=== PATIENT | male | born 1990 | race Two or more races ===

== ENCOUNTER 2020-10-31 01:47 | Emergency (ER) | payer OTHER, SELFPAY ==
[2020-10-31 02:13] VITALS: BP 134/91; PULSE 75; RESP 18; TEMP 37; O2SAT 98; BMI 27.8
--- NOTE | 2020-10-31 04:50 | ED.DENTAL ---
HPI - Dental/Oral General Chief complaint: Dental/Oral Stated complaint: Dental Pain Time Seen by Provider: 10/31/20 04:50 Source: patient Mode of arrival: ambulatory History of Present Illness HPI Narrative: Dental pain at left lower #17. Molar without fevers or chills for 3 months. Related Data Previous Rx's Medication Instructions Recorded amoxicillin-pot clavulanate 1 tab PO Q12H 5 Days #10 tab 10/31/20 [Augmentin] Allergies Allergy/AdvReac Type Severity Reaction Status Date / Time No Known Allergies Allergy Unverified 04/08/20 19:39 [No Known Allergies*] Review of Systems Review of Systems: Pertinent positives and negatives as stated in HPI 10 point review of systems is otherwise negative. [facility] Past Medical History Source: nursing notes reviewed Social History Social History Advance Directives: No Physical Exam Vital Signs: Vital Signs: Last Vital Signs Temp 98.6 F 10/31/20 02:13 Pulse 75 10/31/20 02:13 Resp 18 10/31/20 02:13 BP 134/91 H 10/31/20 02:13 Pulse Ox 98 10/31/20 02:13 Body Mass Index 27.8 VITAL SIGNS: Reviewed. GENERAL: Well developed, well nourished, in no acute distress. HEAD: Normocephalic/atraumatic EYES: PERRLA, EOMI EARS: Ext canals without abnormality, TMs non-bulging and non-erythematous NOSE: Nares patent bilateral OROPHARYNX: no oral lesions noted, posterior pharynx clear, #17 molar with pain on tapping of the tooth, no trismus NECK: Supple, no adenopathy LUNGS: Normal breath sounds.SpO2<98> CARDIOVASCULAR: Regular rate and rhythm without noted murmurs ABDOMEN: Soft, non-tender, non-distended with bowel sounds. NEUROLOGIC: Alert and oriented x 4. Course Course Course Narrative: 29-year-old male with toothache and provided with initial antibiotics as well as combination analgesics for the pain. On re-evaluation patient reports improvement of his tooth pain and understands that he will be discharged with remaining course of antibiotics. Discharge Plan Discharge Clinical Impression: Toothache, Dental caries Patient Disposition: Home, Self-Care Instructions: Toothache (ED) Additional Instructions: 1. Tylenol 1000 mg, orally, every 6 hours as needed for pain control. Do not exceed 4000 mg within 24 hours. 2. Ibuprofen 400 mg, orally with milk or food, every 6 hours as needed for pain control. 3. Please follow up with the dentist on Sunday morning for definitive treatment of your tooth pain. Do not hesitate to return to the emergency department should you develop any acute worsening of your symptoms. Prescriptions: New amoxicillin-pot clavulanate [Augmentin] 875-125 mg tablet 1 tab PO Q12H 5 Days Qty: 10 RF: 0 Referrals: Physician,Unknown [Primary Care Provider] - 2 days Interventions: ED Discharge Assessment Last Done: 10/31/20 05:13 Discharge Date/Time: 10/31/20 05:19
[2020-10-31] MEDS: Amoxicillin/Potassium Clav 875 MG TABLET PO (05:16)
[2020-10-31] MEDS: Acetaminophen 325 MG TABLET 975 MG PO (05:16)
[2020-10-31] MEDS: Ibuprofen 600 MG TABLET PO (05:17)
== END 2020-10-31 05:19 | disposition home or self-care (01) ==
PROVIDERS: Emergency Provider Student in an Organized Health Care Education/Training Program
DX: K08.89 Other specified disorders of teeth and supporting structures (principal); K02.9 Dental caries, unspecified
CPT/HCPCS: 99283

== ENCOUNTER 2021-08-25 15:26 | Outpatient (REF) | payer OTHER, SELFPAY ==
--- NOTE | 2021-08-26 09:55 | MHC.AU.ANO ---
Adult Audiological Evaluation Date of Visit: 08/25/21 General Ophthalmologist Used: Not Applicable Reason for Appointment: Audiologic evaluation due to question of hearing problems with frequent pain and tinnitus in the left ear. Rolo has a history of head trauma from an accident in childhood. Since the head trauma he experiences migraines and dizziness. Rolo notes he thinks the tinnitus and ear pain increases with migraines/headaches. Has hearing been tested previously?: No Hearing Handicap Inventory: HHIE SCORE: 4 Based on HHIE score, patient has: No perceived hearing handicap Ear History: Recent Ear Pain: Left Ear Ear Infections in Childhood: Both Ears Bothersome Tinnitus/Ringing/Noises in Ears: Left Ear Ear used on the phone: Right ear History of occupational noise exposure?: Yes: Uses hearing protection consistently History: No Medical History: Medical History: Headache, Migraines, Tobacco Use Medication List: None reported Otoscopy: Right Ear: Unremarkable Left Ear: Unremarkable Tympanometry: IT IS NOTED THE PROCEDURE CAUSED INCREASED TINNITUS IN THE LEFT EAR AND MILD HEADACHE Tympanometry performed due to: To assess integrity of the middle ear system Right Ear: Normal Middle Ear System (Type A) Left Ear: Normal Middle Ear System (Type A) Acoustic Reflexes: DID NOT TEST DUE TO SYMPTOMS CAUSED BY TYMPANOMETRY Otoacoustic Emissions Frequency Range Used: 1.6-8 kHz Right Ear Results: Present 3563-9273 Hz with 5000 Hz response being reduced Analysis: Present emissions suggest normal cochlear function Left Ear Results: Present 6429-2594 Hz and 7868-8438 Hz. Absent 3601-9545 Hz. Analysis: Present emissions suggest normal cochlear function Reduced/Absent emissions suggest cochlear dysfunction Hearing Evaluation: Transducer(s) Used: Insert Earphones Bone Conduction Method: Conventional Audiometry Stimuli Used: Pure Tones Right Ear: Description of Hearing: Normal to borderline normal hearing thresholds 250-8000 Hz. Left Ear: Description of Hearing: Borderline normal to mild mixed hearing loss through all frequencies. Speech Recognition Threshold (SRT): Method Used: Monitored Live Voice Stimuli Used: Spondee Words Right Ear: 15 dB HL Left Ear: 25 dB HL Word Discrimination: Method: Recorded Lists Word Lists Used: NU-6 Right Ear: 96% at 55 dB HL Left Ear: 92% at 65 dB HL Interpretation of Results: Based on Rolo's symptoms and asymmetric hearing loss, medical consultation with an Direct Mail Manager/Security Messenger and Neurologist should be considered. Migraines may relate to Rolo's symptoms; however, the asymmetry should also be evaluated by the program and research coordinator. Recommendations: Referral to Ear, Nose, and Throat and Neurologist are recommended. Hearing protection should be used when around loud noise. Audiological re-evaluation in 6 months is advised to monitor. Will send a reminder card. Diagnosis: Primary Diagnosis: H90.72 Mixed HL, Unilateral, Left Ear, W/Unrestricted Contralateral Secondary Diagnosis: H93.12 Tinnitus, Left Ear Services Performed: Comprehensive Audiological Evaluation (CPT 38097) Diagnostic Otoacoustic Emissions (CPT 28662, 26+TC) Tympanometry (CPT 66724) Signature: Provider: Suleman Abraham, CCC-A
== END 2021-08-25 15:27 | disposition home or self-care (01) ==
LOC: HO.SH 15:26
PROVIDERS: Visit Provider Nurse Practitioner Family
DX: H90.72 Mixed conductive and sensorineural hearing loss, unilateral, left ear, with unrestricted hearing on the contralateral side (principal); H93.12 Tinnitus, left ear
CPT/HCPCS: 92557; 92567; 92588

== ENCOUNTER 2023-01-23 06:40 | Emergency (ER) | payer OTHER, SELFPAY ==
[2023-01-23 06:53] VITALS: BP 118/49; PULSE 77; RESP 16; TEMP 36.7; O2SAT 96; BMI 24.4
[2023-01-23 07:53] VITALS: BP 122/76; PULSE 69; RESP 14; TEMP 36.6; O2SAT 96
--- NOTE | 2023-01-23 08:06 | ED_ITS ---
HPI - Male Genitourinary General Chief complaint: Urogenital-Male Stated complaint: Pain Time Seen by Provider: 01/23/23 08:04 Source: patient Mode of arrival: ambulatory Limitations: no limitations History of Present Illness HPI Narrative: 32-year-old male who presents emergency department for evaluation of lesion to his penis, dysuria, penile discharge. Patient states that he last had sex 2 months prior. He states this morning he woke up and noted a painful lesion on the shaft of his penis. He also states that hurts when he urinates. The patient has also had a clear penile discharge. He denied fever, chills, rash, nausea, vomiting. Related Data Previous Rx's Medication Instructions Recorded amoxicillin 875 mg-potassium 1 tab PO Q12H 5 days #10 tabs 10/31/20 clavulanate 125 mg tablet (Augmentin) doxycycline hyclate 100 mg tablet 100 mg PO Q12H 10 days #20 tabs 01/23/23 Allergies Allergy/AdvReac Type Severity Reaction Status Date / Time No Known Allergies Allergy Verified 01/23/23 06:53 [No Known Allergies*] Review of Systems Review of Systems: Yes all other systems are reviewed and are negative COUNTS INCLUDE 234 BEDS AT THE [facility] Past Medical History COUNTS INCLUDE 234 BEDS AT THE [facility] Narrative: Past medical history: UTI. Social history: Patient is sexually active and last had intercourse 2 months prior. He stop smoking 2 weeks prior he smoked for 14 years. He drinks alcohol occasionally. He smokes marijuana.. Social History Social History Advance Directives: No Advance Directives Information Provided: No Physical Exam Vital Signs: Vital Signs: Last Vital Signs Temp 97.9 F 01/23/23 07:53 Pulse 69 01/23/23 07:53 Resp 14 01/23/23 07:53 BP 122/76 01/23/23 07:53 Pulse Ox 96 01/23/23 07:53 O2 Del Method Room Air 01/23/23 07:53 BMI result Body Mass Index 24.4 Vital signs are normal General: Awake, alert, male patient, pleasant, cooperative no distress General: Patient has a uncircumcised penis, foreskin is easily retractable, there is a ulcerative lesion on the left lateral penis which is painful to touch, no other lesions noted. Patient has a clear penile discharge. Testicles are descended, nontender, no scrotal swelling. No inguinal adenopathy or tenderness Medical Decision Making Medical Decision Making MDM Narrative: 32-year-old male who presents emergency department for evaluation of a lesion on his penis, dysuria, penile discharge that started today. Patient is sexually active and last had intercourse 2 months prior. Physical examination did reveal an ulcerative lesion to his left lateral distal penile shaft which I cultured for herpes. Patient also has a clear penile discharge concerning for possible chlamydia. I ordered a gonorrhea and chlamydia urine test, urinalysis, viral culture of the penile lesion, syphilis screen and HIV test. Patient was treated with: Ceftriaxone 500 mg with lidocaine IM for gonorrhea Metronidazole 2 g orally for Trichomonas Doxycycline 100 mg b.i.d. times 10 days for chlamydia Patient was advised to follow-up with his PCP in 1 week to check is HIV, syphilis, gonorrhea and chlamydia test. He was also given axis to the patient portal. He was given printed and verbal instructions discharged home Differential Diagnosis Differential diagnosis includes but is not limited to gonorrhea, chlamydia, Trichomonas, syphilis, HIV disease, herpes Discharge Plan Discharge Clinical Impression: Penile lesion, Urethritis Patient Disposition: Home, Self-Care Instructions: Sexually Transmitted Diseases (ED) Additional Instructions: Your urine was sent for gonorrhea and chlamydia testing Your urine was also sent to test you for urinary tract infection (UTI) The lesion on your penis was swabbed for herpes simplex Your blood was tested for syphilis and HIV disease. You will need to follow-up with your doctor in 1 week to get these test results. You can also check these results on the patient portal. The emergency department is supposed to contact to these tests are positive however DO NOT rely on us contacting you, it is very important that you follow- up with your doctor to get these results. Do not have sex until you are re-evaluated by your doctor in you know your test results. Your treated with ceftriaxone mixed with lidocaine 500 mg intramuscularly-this treats gonorrhea You were treated with metronidazole (Flagyl) 2 g orally-this treats Trichomonas You were given a prescription for doxycycline 100 mg every 12 hours for 10 days- this treats chlamydia Follow-up with your doctor in 7 days. Please return to the emergency department if your symptoms get worse or if you develop any symptoms that are concerning to you. Prescriptions: New doxycycline hyclate 100 mg tablet 100 mg PO Q12H 10 Days Qty: 20 0RF No Action amoxicillin-pot clavulanate [Augmentin] 875-125 mg tablet 1 tab PO Q12H 5 Days Qty: 10 0RF
== END 2023-01-23 09:08 | disposition home or self-care (01) ==
PROVIDERS: Emergency Provider Emergency Medicine Emergency Medical Services
DX: B00.9 Herpesviral infection, unspecified (principal); N34.2 Other urethritis; N48.21 Abscess of corpus cavernosum and penis; L98.9 Disorder of the skin and subcutaneous tissue, unspecified
CPT/HCPCS: 0353U; 36415; 81001; 86780; 87086; 87255; 87389; 96372; 99283; 99284; J0696

== ENCOUNTER 2023-03-10 07:38 | Emergency (ER) | payer OTHER, SELFPAY ==
--- NOTE | ~2023-03-10 | XR_ITS ---
EXAMINATION: XR RIBS, LEFT CLINICAL INFORMATION: Left rib injury COMPARISON: None available. TECHNIQUE: 3 views of the left ribs were obtained. FINDINGS: Lungs are clear. No consolidation, pneumothorax, or pleural effusion. The cardiomediastinal silhouette and pulmonary vasculature are normal. Multiple views of left ribs reveal mild deformity of left lateral 10th rib suggestive of fracture likely subacute to old. No additional fracture seen. Rest of the bony thorax is unremarkable.. XR/XR ribs LT min 3V w CXR1V IMPRESSION: Chest appears unremarkable. There is a left lateral 10th rib fracture of indeterminate age
[2023-03-10 07:41] VITALS: BP 117/71; PULSE 80; RESP 18; TEMP 37; O2SAT 96; BMI 25.4
--- NOTE | 2023-03-10 08:10 | ED.EXTPRO ---
HPI - Extremity Problem General Chief complaint: Extremity Injury, Upper Stated complaint: l rib inj Time Seen by Provider: 03/10/23 08:03 Source: patient and family Mode of arrival: ambulatory Limitations: no limitations History of Present Illness HPI Narrative: 32 yo male no sig PMH hx of L rib fractures in the past was playing basketball with kids yesterday jumped for ball and hit L ribs into trunk of car. no LOC no other issues. hurts to move and take deep breaths MD Complaint: other (left rib pain) Onset (ago): day(s) (1) Pain Consistency: constant Location: left and other (ribs) Quality: aching and dull Radiation: none Relieving factors: nothing Exacerbating factors: palpation Associated symptoms: denies other symptoms Context: other (fall) Related Data Previous Rx's Medication Instructions Recorded amoxicillin 875 mg-potassium 1 tab PO Q12H 5 days #10 tabs 10/31/20 clavulanate 125 mg tablet (Augmentin) doxycycline hyclate 100 mg tablet 100 mg PO Q12H 10 days #20 tabs 01/23/23 valacyclovir 1 gram tablet 1,000 mg PO BID 10 days #20 tabs 01/31/23 (Valtrex) cyclobenzaprine 10 mg tablet 10 mg PO TID PRN muscle spasm #20 03/10/23 tabs ibuprofen 600 mg tablet 600 mg PO Q6H PRN pain #30 tabs 03/10/23 lidocaine 5 % topical patch 1 patch topical DAILY #30 ea 03/10/23 Allergies Allergy/AdvReac Type Severity Reaction Status Date / Time No Known Allergies Allergy Verified 01/23/23 06:53 [No Known Allergies*] Review of Systems Review of Systems: Constitutional : No Weight loss, No Fever, No Chills Cardiovascular : pos Chest Pain, no SOB, Respiratory : No Cough, No Sputum Gastrointestinal : no Nausea, No Vomiting, No Diarrhea, No abdominal Pain, No Hematochezia, No Melena Genitourinary : No Dysuria, No Urinary Frequency Musculoskeletal : No joint pain, No Myalgias, No Joint Swelling Skin : No Skin Lesions, No rash Neuro : No Weakness, No Numbness, No Dizziness, No Headache All other systems reviewed and are negative PMFSH Past Medical History Attestation statement: The following information was validated with the patient. Medical History Rib fracture Social History Social History Alcohol intake: current Alcohol intake frequency: holidays/special occasions only Smoked in Last 30 Days: Yes Use of substances other than those prescribed or required for medical reasons: No Advance Directives: No Advance Directives Information Provided: No Physical Exam Vital Signs: Vital Signs: Last Vital Signs Temp 98.6 F 03/10/23 07:41 Pulse 80 03/10/23 07:41 Resp 18 03/10/23 07:41 BP 117/71 03/10/23 07:41 Pulse Ox 96 03/10/23 07:41 O2 Del Method Room Air 03/10/23 07:41 BMI result Body Mass Index 25.4 Appearance: Alert. Oriented X3. No acute distress. Eyes: Pupils equal, round and reactive to light. ENT: Pharynx normal. Neck: Normal inspection. Neck supple. CVS: Normal heart rate and rhythm. Pulses normal. Chest: ttp along left lateral and anterior ribs no crepitus or deformity/swelling/contusion noted Respiratory: No respiratory distress. Breath sounds normal. Abdomen: Soft and nontender. no LUQ pain Skin: Skin warm and dry. Normal skin color. Normal skin turgor. Extremities: No lower extremity edema. No calf ttp Neuro: Oriented X 3. No motor deficit. No sensory deficit. Medications Administered Discontinued Medications Generic Name Dose Route Start Last Admin Trade Name Freq PRN Reason Stop Dose Admin Cyclobenzaprine HCl 10 mg 03/10/23 08:16 03/10/23 08:25 Cyclobenzaprine Hcl 10 Mg Tablet PO 03/10/23 08:17 10 mg ONCE ONE Administration Lidocaine 1 patch 03/10/23 08:16 03/10/23 08:24 Lidocaine 4 % Patch Adh..Patch TRANSDERMA 03/10/23 08:17 1 patch ONCE ONE Administration Protocol Medical Decision Making Medical Decision Making MDM Narrative: 32 yo male with L rib pain after jumping for basketball and hitting L ribs into trunk - VS stable, no abdominal pain or LUQ to suggest splenic injury he has injured ribs before at this time xrays of ribs ordered - flexeril and lidocaine patch. No other injuries noted - lungs sounds heard at this time. Differential Diagnosis Differential Diagnoses: The differential diagnosis associated with the presentation includes fracture, contusion Independent Interpretation I performed an independent interpretation of an: Plain X-Ray (no pneumothorax seen) Radiology Impression Discussion of test interpretation with radiology: I have reviewed the radiologist's reading. Independent Historian Clinical information obtained from an independent historian. History obtained from or confirmed by: Spouse External Record Review External record reviewed: Inpatient record Prescription Management I considered prescription management with: Other Discharge Plan Discharge Clinical Impression: Contusion of rib on left side Qualifiers: Encounter type: initial encounter Qualified Code(s): S20.212A - Contusion of left front wall of thorax, initial encounter Fracture of rib Qualifiers: Encounter type: initial encounter Rib fracture type: single rib Fracture type: closed Laterality: left Qualified Code(s): S22.32XA - Fracture of one rib, left side, initial encounter for closed fracture Patient Disposition: Home, Self-Care Instructions: Rib Fracture (ED), Rib Contusion (ED) Additional Instructions: xray shows possible old fracture of L 10th rib but no new fractures evident we will treat as new fracture vs bone bruise given pain take 10 deep breaths every hour while awake to prevent pneumonia return for fevers, cough, difficulty breathing or any other concerns no lifting more than 10lbs for 2 weeks - no contact sports like basketball for 2 weeks Prescriptions: New lidocaine 5 % adhesive patch,medicated 1 patch topical DAILY Qty: 30 0RF Rx Instructions: leave on most painful area for up to 12 hrs ibuprofen 600 mg tablet 600 mg PO Q6H PRN (Reason: pain) Qty: 30 0RF cyclobenzaprine 10 mg tablet 10 mg PO TID PRN (Reason: muscle spasm) Qty: 20 0RF No Action amoxicillin-pot clavulanate [Augmentin] 875-125 mg tablet 1 tab PO Q12H 5 Days Qty: 10 0RF doxycycline hyclate 100 mg tablet 100 mg PO Q12H 10 Days Qty: 20 0RF valacyclovir [Valtrex] 1 gram tablet 1,000 mg PO BID 10 Days Qty: 20 0RF Stand Alone Forms: Work/School Release
[2023-03-10] MEDS: Lidocaine 4 % Patch ADH..PATCH 1 PATCH TRANSDERMA (08:24)
[2023-03-10] MEDS: Cyclobenzaprine HCl 10 MG TABLET PO (08:25)
--- NOTE | 2023-03-10 08:30 | PC.NURSE ---
PT WAS EVALUATED BY DR CRAIG, RADIOLOGY WAS COMPLETED, PT WAS MEDICATED CHARTED. AWAITING DISPO
== END 2023-03-10 08:51 | disposition home or self-care (01) ==
PROVIDERS: Emergency Provider Emergency Medicine
DX: S20.212A Contusion of left front wall of thorax, initial encounter (principal); S22.32XA Fracture of one rib, left side, initial encounter for closed fracture; W22.8XXA Striking against or struck by other objects, initial encounter; Y93.67 Activity, basketball; Y92.017 Garden or yard in single-family (private) house as the place of occurrence of the external cause; Y99.9 Unspecified external cause status
CPT/HCPCS: 71101; 99283; 99284